=== PATIENT | female | born 1950 | race Two or more races ===

== ENCOUNTER 2020-12-24 06:49 | Inpatient (IN) | payer MEDICARE ==
[2020-12-22 15:08] LABS: Basophils # (auto) 0 10 ^3/uL (0-0.2); Basophils % (auto) 0.3 % (0.0-2.0); Eosinophils # (auto) 0.1 10 ^3/uL (0-0.8); Eosinophils % (auto) 0.9 % (0.0-7.0); Hematocrit 42.1 % (36.0-46.0); Hemoglobin 13.9 g/dL (12.2-16.2); Lymphocytes # (auto) 1.4 10 ^3/uL (0.4-5.4); Lymphocytes % (auto) 17.4 % (10.0-50.0); Mean Corpuscular Hemoglobin 28.2 pg (28.0-32.0); Mean Corpuscular Hgb Conc. 32.9 g/dL (32.0-36.0); Mean Corpuscular Volume 85.5 fL (80.0-100.0); Monocytes # (auto) 0.6 10 ^3/uL (0-1.3); Monocytes % (auto) 7.5 % (0.0-12.0); Neutrophils # (auto) 5.9 10 ^3/uL (1.6-8.6); Neutrophils % (auto) 73.9 % (37.0-80.0); Red Blood Cells 4.93 10^6/uL (4.0-5.20); Red Cell Distribution Width 13.5 % (11.8-14.3); White Blood Cell 8.1 10^3/uL (4.4-10.8)
[2020-12-22 15:17] LABS: Urine Bacteria NONE SEEN /hpf (None Seen); Urine Blood Negative /uL (Negative); Urine Mucus FEW (None Seen); Urine WBC 11 /hpf (0 - 5)
[2020-12-22 15:31] LABS: Albumin 3.6 g/dL (3.4-5.0); Calcium 9.6 mg/dL (8.5-10.1); Potassium 4.2 mmol/L (3.5-5.1)
[2020-12-22 15:36] LABS: BUN/Creatinine Ratio 24.4; Bilirubin, Total 0.8 mg/dL (0.2-1.0); Total Protein 7.7 g/dL (6.4-8.2)
[~2020-12-24] VITALS: Ht 152.4 cm; Wt 79.9 kg
[2020-12-24] VITALS (12 sets, daily range): BP systolic 92–120; BP diastolic 51–68
[~2020-12-24 06:49] MED LIST: ACE650RS PR; ATOR40TA52 PO; MISC1TAB27 PO; MULT-927 PO
[2020-12-24] MEDS ORDERED: TRANEXAMIC ACID 20 ML ONE (06:59)
[2020-12-24] MEDS ORDERED: VANCOMYCIN HCL 1000 MG VL ONE (07:00)
[2020-12-24] MEDS ORDERED: CLINDAMYCIN 900MG IV 50 ML IV ONE (07:44)
[2020-12-24] MEDS ORDERED: EPINEPHrine HCL 1 MG/1 ML AMP ONE (08:28)
[2020-12-24] MEDS ORDERED: TETRACAINE 1% INJ 2 ML VIAL IJ ONE (08:36)
[2020-12-24] MEDS ORDERED: MIDAZOLAM HCL 2MG/2ML 2ml VIAL (1mg/ml) ONE (08:36)
[2020-12-24] MEDS ORDERED: MORPHINE SULF PF 2 MG/2 ML SYRG ONE (08:36)
[2020-12-24] MEDS ORDERED: fentaNYL CITRATE 100 MCG/2 ML VL ONE (08:36)
[2020-12-24] MEDS ORDERED: PROPOFOL 10 MG/ML 20 ML IV ONE (09:29)
[2020-12-24] MEDS ORDERED: ONDANSETRON HCL 4 MG/2 ML VIAL IV PRN ×4 (09:30→15:15)
[2020-12-24] MEDS ORDERED: HYDROmorphone HCL 2 MG/ML VL IV PRN ×2 (09:30→11:30)
[2020-12-24] MEDS ORDERED: hydrALAZINE HCL 20 MG/ML VL IV PRN (09:30)
[2020-12-24] MEDS ORDERED: diphenhdrAMINE HCL 50 MG/1 ML VL IV PRN (09:30)
[2020-12-24] MEDS ORDERED: ePHEDrine SULFATE 50 MG/ML AMP IV PRN (09:30)
[2020-12-24] MEDS ORDERED: NALOXONE HCL 0.4 MG/ML VIAL IV PRN (09:30)
[2020-12-24] MEDS ORDERED: DexAMETHasone SOD PHOS 10MG/1ML VIAL INJ IV PRN (09:30)
[2020-12-24] MEDS ORDERED: NALBUPHINE HCL 10 MG/1ml INJECTION SUBCUT ONE (09:30)
[2020-12-24] MEDS ORDERED: LABETALOL HCL 5 MG/ML 4ML SYRINGE IV PRN (09:30)
[2020-12-24] MEDS ORDERED: PHENYLEPHRINE HCL 10 MG/ML VL ONE (10:25)
[2020-12-24] MEDS ORDERED: oxyCODONE HCL 5MG TAB PO PRN ×2 (11:30)
[2020-12-24] MEDS: SODIUM CHLORIDE 0.9% 1,000 ML IV SCH (11:30)
[2020-12-24] MEDS: KETOROLAC TROMETH 30 MG/ML 1ML VIAL IV SCH ×2 (12:00→18:42)
[2020-12-24] MEDS: ACETAMINOPHEN 325 MG TAB PO SCH ×2 (12:00→18:43)
[2020-12-24] MEDS ORDERED: PROMETHAZINE HCL 25 MG/ML 1ML IV ONE (14:22)
[2020-12-24] MEDS ORDERED: PROMETHAZINE HCL 25 MG/ML 1ML IV PRN (15:15)
[2020-12-24] MEDS: CLINDAMYCIN 600MG IV 50 ML IV SCH ×2 (16:20→21:39)
[2020-12-24] MEDS: ATORVASTATIN 20 MG TAB PO SCH (21:39)
[2020-12-25] VITALS (12 sets, daily range): BP systolic 90–108; BP diastolic 44–60
[2020-12-25] MEDS: SODIUM CHLORIDE 0.9% 1,000 ML IV SCH ×4 (00:27→19:56)
[2020-12-25] MEDS: KETOROLAC TROMETH 30 MG/ML 1ML VIAL IV SCH ×4 (00:32→18:00)
[2020-12-25] MEDS: ACETAMINOPHEN 325 MG TAB PO SCH ×4 (00:32→18:00)
[2020-12-25 05:57] LABS: Basophils # (auto) 0 10 ^3/uL (0-0.2); Eosinophils # (auto) 0 10 ^3/uL (0-0.8); Hematocrit 31.1 % (36.0-46.0); Hemoglobin 10.2 g/dL (12.2-16.2); Lymphocytes # (auto) 0.6 10 ^3/uL (0.4-5.4); Mean Corpuscular Hemoglobin 28.1 pg (28.0-32.0); Mean Corpuscular Hgb Conc. 32.8 g/dL (32.0-36.0); Mean Corpuscular Volume 85.6 fL (80.0-100.0); Monocytes % (auto) 9.5 % (0.0-12.0); Neutrophils % (auto) 84.5 % (37.0-80.0); Red Blood Cells 3.63 10^6/uL (4.0-5.20); Red Cell Distribution Width 13.6 % (11.8-14.3); White Blood Cell 10.6 10^3/uL (4.4-10.8)
[2020-12-25 06:28] LABS: Calcium 7.7 mg/dL (8.5-10.1); Potassium 4.7 mmol/L (3.5-5.1)
[2020-12-25 06:30] LABS: BUN/Creatinine Ratio 23.8
[2020-12-25] MEDS ORDERED: ACET-1158 PO (09:11)
[2020-12-25] MEDS ORDERED: POM PO (09:11)
[2020-12-25] MEDS: APIXABAN 2.5 MG TAB PO SCH ×2 (10:00→22:59)
[2020-12-25] MEDS: ATORVASTATIN 20 MG TAB PO SCH (22:59)
[2020-12-26] MEDS: KETOROLAC TROMETH 30 MG/ML 1ML VIAL IV SCH ×4 (01:13→17:53)
[2020-12-26] MEDS: ACETAMINOPHEN 325 MG TAB PO SCH ×4 (01:14→17:53)
[2020-12-26] MEDS: SODIUM CHLORIDE 0.9% 1,000 ML IV SCH ×3 (04:34→22:39)
[2020-12-26 05:00] VITALS: BP 111/62
[2020-12-26 08:00] VITALS: BP 126/70
[2020-12-26 09:35] VITALS: BP 126/70
[2020-12-26] MEDS: APIXABAN 2.5 MG TAB PO SCH ×2 (10:57→22:39)
[2020-12-26 13:00] VITALS: BP 135/70
[2020-12-26 16:18] VITALS: BP 131/74
[2020-12-26 21:57] VITALS: BP 129/67
[2020-12-26] MEDS: ATORVASTATIN 20 MG TAB PO SCH (22:39)
[2020-12-27] MEDS: ACETAMINOPHEN 325 MG TAB PO SCH ×3 (00:29→12:37)
[2020-12-27] MEDS: KETOROLAC TROMETH 30 MG/ML 1ML VIAL IV SCH ×3 (00:29→12:37)
[2020-12-27] MEDS: SODIUM CHLORIDE 0.9% 1,000 ML IV SCH ×2 (03:30→12:38)
[2020-12-27 05:00] VITALS: BP 126/71
[2020-12-27 08:00] VITALS: BP 135/63
[2020-12-27] MEDS: APIXABAN 2.5 MG TAB PO SCH (10:04)
[2020-12-27 12:00] VITALS: BP 148/88
== END 2020-12-27 15:20 | disposition home health service (06) | DRG 470 ==
LOC: SUR 06:49 → OVERFLOW 11:28 → WEST WING 12:57
PROVIDERS: ADMIT Orthopaedic Surgery; ATTEND Orthopaedic Surgery
PROC: 0SRB06Z Replacement of Left Hip Joint with Oxidized Zirconium on Polyethylene Synthetic Substitute, Open Approach (ICD-10-PCS; principal; 2020-12-24 08:39)
DX: M16.12 Unilateral primary osteoarthritis, left hip (principal); D62 Acute posthemorrhagic anemia; Z88.1 Allergy status to other antibiotic agents; Z88.0 Allergy status to penicillin; Z20.822 Contact with and (suspected) exposure to COVID-19
CPT/HCPCS: 36415; 72170; 80048; 80053; 81001; 85025; 86850; 86900; 86901; 97110; 97116; 97163; 97530; G0378; J0171; J1885; J2250; J2405; J2704; J3490

== ENCOUNTER 2023-12-12 07:32 | Inpatient (IN) | payer MEDICARE ==
[2023-12-11 12:23] LABS: Urine Bacteria None Seen /hpf (None Seen)
[2023-12-11 12:51] LABS: Basophils # (auto) 0.1 10 ^3/uL (0-0.2); Basophils % (auto) 0.7 % (0.0-2.0); Eosinophils # (auto) 0.3 10 ^3/uL (0-0.8); Eosinophils % (auto) 3.2 % (0.0-7.0); Hematocrit 40.6 % (36.0-46.0); Hemoglobin 13.7 g/dL (12.2-16.2); Lymphocytes # (auto) 1.7 10 ^3/uL (0.4-5.4); Lymphocytes % (auto) 21.8 % (10.0-50.0); Mean Corpuscular Hemoglobin 29.2 pg (28.0-32.0); Mean Corpuscular Hgb Conc. 33.7 g/dL (32.0-36.0); Mean Corpuscular Volume 86.6 fL (80.0-100.0); Monocytes # (auto) 0.6 10 ^3/uL (0-1.3); Monocytes % (auto) 7.6 % (0.0-12.0); Neutrophils # (auto) 5.3 10 ^3/uL (1.6-8.6); Neutrophils % (auto) 66.7 % (37.0-80.0); Platelet Count (auto) 240 10^3/uL (140-450); Red Blood Cells 4.69 10^6/uL (4.0-5.20); Red Cell Distribution Width 13.6 % (11.8-14.3); White Blood Cell 7.9 10^3/uL (4.4-10.8)
[2023-12-11 12:56] LABS: Urine Blood Negative /uL (Negative); Urine Clarity Clear (Clear); Urine Color Light-Yellow (Yellow); Urine Protein, UAD Negative (Negative); Urine Specific Gravity 1.012 (1.001-1.035); Urine Urobilinogen Normal (Negative); Urine WBC 7 /hpf (0 - 5); Urine pH 5.5 (5.0-9.0)
[2023-12-11 13:02] LABS: INR 1.06 (0.9-1.15); Partial Thromboplastin Time 23.2 SEC (24.5-34.5); Prothrombin Time 11.2 sec (9.3-11.8)
[2023-12-11 13:18] LABS: Alanine Aminotransferase 33 U/L (7-40); Alkaline Phosphatase 91 U/L (46-116); Anion Gap 7 (5-15); Aspartate Aminotransferase 23 U/L (13-40); BUN/Creatinine Ratio 21.8 (10.0-20.0); Blood Urea Nitrogen 17 mg/dL (9-23); Calcium 10.7 mg/dL (8.7-10.4); Carbon Dioxide 26 mmol/L (20-31); Chloride 111 mmol/L (98-107); Glucose 90 mg/dL (74-106); Sodium 144 mmol/L (136-145)
[2023-12-11 13:19] LABS: Albumin 4.7 g/dL (3.2-4.8)
[2023-12-11 13:20] LABS: Bilirubin, Total 0.5 mg/dL (0.2-1.0); Total Protein 7.2 g/dL (5.7-8.2)
[~2023-12-12] VITALS: Ht 152.4 cm; Wt 86.2 kg
[2023-12-12] VITALS (17 sets, daily range): BP systolic 84–154; BP diastolic 40–76; PULSE 76–92; RESP 14–20; TEMP 97.5–98; O2SAT 91–98
[~2023-12-12 07:32] MED LIST changes: -ACE650RS PR; +ALEN70TA74 PO; +ATOR-507 PO; +CELE200C PO; +MECL12.586 PO
[2023-12-12] MEDS: ceFAZolin 2 GM/D5W100ml 100 ML IV ONE (07:37)
[2023-12-12] MEDS: TRANEXAMIC ACID 20 ML ONE (07:49)
[2023-12-12] MEDS: ROPIVACAINE 0.5% (5MG/ML) 20ML AMPULE IJ ONE (07:50)
[2023-12-12] MEDS: BUPIVACAINE 0.25% INJ 50ML VIAL ONE (07:50)
[2023-12-12] MEDS: EPINEPHrine HCL 1 MG/1 ML AMP ONE (07:52)
[2023-12-12] MEDS: KETOROLAC TROMETH 30 MG/ML 1ML VIAL ONE (07:52)
[2023-12-12] MEDS: CEFEPIME 1GM/ 50ML 50 ML IV ONE (08:21)
[2023-12-12] MEDS: TETRACAINE 1% INJ 2 ML VIAL IJ ONE (08:25)
[2023-12-12] MEDS ORDERED: MORPHINE SULF PF 5 MG/10 ML VIAL ONE (08:32)
[2023-12-12] MEDS ORDERED: MIDAZOLAM HCL 2MG/2ML 2ml VIAL (1mg/ml) ONE (08:33)
[2023-12-12] MEDS ORDERED: fentaNYL CITRATE 100 MCG/2 ML VL ONE (08:33)
[2023-12-12] MEDS ORDERED: KETAMINE 50mg/ML 1ml syringe ONE (08:34)
[2023-12-12] MEDS: VANCOMYCIN HCL 1000 MG VL ONE (09:29)
[2023-12-12] MEDS ORDERED: PROPOFOL 10 MG/ML 20 ML IV ONE (09:34)
[2023-12-12] MEDS ORDERED: diphenhdrAMINE HCL 50 MG/1 ML VL IV PRN (10:00)
[2023-12-12] MEDS ORDERED: NALOXONE HCL 0.4 MG/ML VIAL IV PRN (10:00)
[2023-12-12] MEDS ORDERED: ONDANSETRON HCL 4 MG/2 ML VIAL IV PRN (10:00)
[2023-12-12] MEDS ORDERED: HYDROmorphone HCL 2 MG/ML VL/or syr IV PRN (10:00)
[2023-12-12] MEDS ORDERED: DexAMETHasone SOD PHOS 10MG/1ML VIAL INJ IV PRN (10:00)
[2023-12-12] MEDS ORDERED: KETOROLAC TROMETH 30 MG/ML 1ML VIAL IV PRN (10:00)
[2023-12-12] MEDS: NALBUPHINE HCL 10 MG/1ml INJECTION SUBCUT ONE (10:00)
[2023-12-12] MEDS ORDERED: ONDANSETRON HCL 4 MG/2 ML VIAL ONE (10:31)
[2023-12-12] MEDS ORDERED: NITROGLYCERIN 0.4 MG SL TAB SL PRN (11:00)
[2023-12-12] MEDS ORDERED: MORPHINE SULFATE INJ 2 MG/ml SYRG IV PRN (11:00)
[2023-12-12] MEDS: ONDANSETRON HCL 4 MG/2 ML VIAL IV ONE (11:18)
[2023-12-12] MEDS ORDERED: oxyCODONE HCL 5MG TAB PO PRN ×2 (11:30)
[2023-12-12] MEDS: PROMETHAZINE HCL 25 MG RECT SUPP PR ONE (11:58)
[2023-12-12] MEDS: SODIUM CHLORIDE 0.9% 1,000 ML IV SCH (12:15)
[2023-12-12] MEDS: DexAMETHasone SOD PHOS 4 MG/1ML SDV INJ IV ONE (12:45)
[2023-12-12] MEDS: METOCLOPRAMIDE HCL 5MG/ml INJ 2ml VIAL IV ONE (12:45)
[2023-12-12] MEDS: METOCLOPRAMIDE HCL 5MG/ml INJ 2ml VIAL ONE (12:53)
[2023-12-12] MEDS: ceFAZolin 2 GM/D5W50ml 50 ML IV SCH (16:00)
[2023-12-12] MEDS: ACETAMINOPHEN 325 MG TAB PO SCH (16:00)
[2023-12-12] MEDS: ONDANSETRON HCL 4 MG/2 ML VIAL IV PRN (16:02)
[2023-12-12] MEDS: KETOROLAC TROMETH 30 MG/ML 1ML VIAL IV SCH (16:03)
[2023-12-12] MEDS: MECLIZINE HCL 25 MG TAB PO SCH (21:25)
[2023-12-12] MEDS: PREGABALIN 25 MG CAP PO SCH (21:25)
[2023-12-12] MEDS: ATORVASTATIN 20 MG TAB PO SCH (21:26)
[2023-12-13] VITALS (18 sets, daily range): BP systolic 84–130; BP diastolic 40–62; PULSE 76–98; RESP 16–20; TEMP 97.9–99.4; O2SAT 91–97
[2023-12-13 07:46] LABS: Chloride 111 mmol/L (98-107); Potassium 4.2 mmol/L (3.5-5.1); Sodium 142 mmol/L (136-145)
[2023-12-13 07:47] LABS: Anion Gap 5 (5-15); Calcium 8.8 mg/dL (8.7-10.4); Carbon Dioxide 26 mmol/L (20-31)
[2023-12-13 07:52] LABS: BUN/Creatinine Ratio 21.2 (10.0-20.0); Blood Urea Nitrogen 18 mg/dL (9-23); Glucose 109 mg/dL (74-106)
[2023-12-13 08:03] LABS: Basophils # (auto) 0 10 ^3/uL (0-0.2); Eosinophils # (auto) 0 10 ^3/uL (0-0.8); Hematocrit 29.4 % (36.0-46.0); Hemoglobin 9.8 g/dL (12.2-16.2); Lymphocytes % (auto) 7.6 % (10.0-50.0); Mean Corpuscular Hemoglobin 29.2 pg (28.0-32.0); Mean Corpuscular Hgb Conc. 33.4 g/dL (32.0-36.0); Mean Corpuscular Volume 87.5 fL (80.0-100.0); Monocytes # (auto) 1.2 10 ^3/uL (0-1.3); Monocytes % (auto) 9.1 % (0.0-12.0); Neutrophils # (auto) 10.9 10 ^3/uL (1.6-8.6); Neutrophils % (auto) 83.3 % (37.0-80.0); Platelet Count (auto) 192 10^3/uL (140-450); Red Blood Cells 3.36 10^6/uL (4.0-5.20); Red Cell Distribution Width 13.4 % (11.8-14.3); White Blood Cell 13.1 10^3/uL (4.4-10.8)
[2023-12-13] MEDS: APIXABAN 2.5 MG TAB PO SCH (09:03)
[2023-12-13] MEDS: FUROSEMIDE 20 MG/2 ML VIAL IV ONE (17:38)
[2023-12-13] MEDS: ENOXAPARIN SOD 40 MG/0.4 ML SYRINGE SC ONE (17:38)
[2023-12-14 01:00] VITALS: BP 145/70; PULSE 87; RESP 20; TEMP 97.9; O2SAT 96
[2023-12-14 05:00] VITALS: BP 132/68; PULSE 67; RESP 20; TEMP 98.1; O2SAT 96
[2023-12-14 07:06] LABS: Basophils # (auto) 0 10 ^3/uL (0-0.2); Basophils % (auto) 0.2 % (0.0-2.0); Eosinophils # (auto) 0.1 10 ^3/uL (0-0.8); Eosinophils % (auto) 0.8 % (0.0-7.0); Hematocrit 28.7 % (36.0-46.0); Hemoglobin 9.6 g/dL (12.2-16.2); Lymphocytes # (auto) 1.5 10 ^3/uL (0.4-5.4); Lymphocytes % (auto) 13.5 % (10.0-50.0); Mean Corpuscular Hemoglobin 29.2 pg (28.0-32.0); Mean Corpuscular Hgb Conc. 33.5 g/dL (32.0-36.0); Monocytes # (auto) 0.8 10 ^3/uL (0-1.3); Monocytes % (auto) 7.1 % (0.0-12.0); Neutrophils # (auto) 8.5 10 ^3/uL (1.6-8.6); Neutrophils % (auto) 78.4 % (37.0-80.0); Platelet Count (auto) 176 10^3/uL (140-450); Red Blood Cells 3.29 10^6/uL (4.0-5.20); Red Cell Distribution Width 13.8 % (11.8-14.3); White Blood Cell 10.8 10^3/uL (4.4-10.8)
[2023-12-14 07:10] LABS: Chloride 112 mmol/L (98-107); Potassium 3.8 mmol/L (3.5-5.1); Sodium 145 mmol/L (136-145)
[2023-12-14 07:11] LABS: Anion Gap 6 (5-15); Calcium 8.9 mg/dL (8.7-10.4); Carbon Dioxide 27 mmol/L (20-31)
[2023-12-14 07:16] LABS: Glucose 99 mg/dL (74-106)
[2023-12-14 07:17] LABS: BUN/Creatinine Ratio 21.2 (10.0-20.0); Blood Urea Nitrogen 14 mg/dL (9-23)
[2023-12-14 08:00] VITALS: PULSE 69; PULSE 79; RESP 15
[2023-12-14 08:46] VITALS: BP 140/77; PULSE 69; RESP 15; TEMP 97.9; O2SAT 97
[2023-12-14] MEDS: ENOXAPARIN SOD 40 MG/0.4 ML SYRINGE SC SCH (09:28)
[2023-12-14] MEDS: POTASSIUM CHL 20 Meq TABLET PO ONE (12:21)
[2023-12-14] MEDS: FUROSEMIDE 20 MG/2 ML VIAL IV ONE (12:25)
[2023-12-14 12:41] VITALS: BP 134/64; PULSE 62; RESP 15; TEMP 97.6; O2SAT 93
[2023-12-14 16:11] VITALS: BP 134/64; PULSE 62; RESP 16; TEMP 98.7; O2SAT 93
== END 2023-12-14 17:10 | disposition home or self-care (01) | DRG 469 ==
LOC: SUR 07:32 → TELE 11:00 → TELE-EAST 15:00
PROVIDERS: ADMIT Orthopaedic Surgery; ATTEND Internal Medicine
PROC: 0SR90JZ Replacement of Right Hip Joint with Synthetic Substitute, Open Approach (ICD-10-PCS; principal; 2023-12-12 08:25)
DX: M16.11 Unilateral primary osteoarthritis, right hip (principal); J96.01 Acute respiratory failure with hypoxia; E78.5 Hyperlipidemia, unspecified; M81.0 Age-related osteoporosis without current pathological fracture; Z82.3 Family history of stroke; Z88.1 Allergy status to other antibiotic agents; Z88.0 Allergy status to penicillin; Z79.899 Other long term (current) drug therapy
CPT/HCPCS: 36415; 71045; 72170; 73502; 80048; 80053; 81001; 85025; 85610; 85730; 86850; 86900; 86901; 93306; 97116; 97163; 97530; A4565; G0378; J0171; J1100; J1885; J2250; J2405; J2704; J3490